=== PATIENT | male | born 1990 | race Caucasian/White ===

== ENCOUNTER 2019-05-04 11:41 | Emergency (ER) | payer OTHER ==
[~2019-05-04] VITALS: Ht 177.8 cm; Wt 77.1 kg
[2019-05-04 13:14] LABS: ABSOLUTE BASOPHILS 0.1 thou/uL (0.0-0.2); ABSOLUTE EOSINOPHILS 0.1 thou/uL (0.0-0.7); ABSOLUTE LYMPHOCYTES 1.4 thou/uL (0.8-5.3); ABSOLUTE MONOCYTES 0.5 thou/uL (0.0-1.2); ABSOLUTE NEUTROPHILS 4.3 thou/uL (1.6-8.1); EOSINOPHILS 0.9 %; HEMATOCRIT 43.2 % (42.0-52.0); LYMPHOCYTES 22.2 %; MCH 30.2 pg (26.0-34.0); MCHC 34.6 g/dL (28.0-37.0); MCV 87.4 fL (80.0-100.0); MONOCYTES 8.4 %; MPV 9.1 fl. (7.2-11.1); NUCLEATED RBCS 0 /100WBC; PLATELET COUNT* 282 thou/uL (150-400); POLYS 67.5 %; RBC 4.95 mil/uL (4.50-6.00); RDW-CV 13.3 % (10.5-14.5); WBC 6.3 thou/uL (4.0-11.0)
[2019-05-04 13:22] LABS: CALCIUM 8.4 mg/dL (8.5-10.1); CREATININE 0.9 mg/dL (0.6-1.3); POTASSIUM 4.1 mmol/L (3.5-5.1)
[2019-05-04] MEDS ORDERED: TORADOL 10 MG T10 MG PO (15:20)
[2019-05-04] MEDS ORDERED: CYCLOBENZAPRINE5 MG PO (15:20)
[2019-05-04 15:30] VITALS: BP 109/73
== END 2019-05-04 15:31 | disposition home or self-care (01) ==
LOC: M.ERS 11:41
PROVIDERS: Personal Emergency Response Attendant
DX: S00.93XA Contusion of unspecified part of head, initial encounter (principal); M54.2 Cervicalgia; F32.9 Major depressive disorder, single episode, unspecified; Z88.1 Allergy status to other antibiotic agents; W22.8XXA Striking against or struck by other objects, initial encounter; Y93.89 Activity, other specified; Y92.89 Other specified places as the place of occurrence of the external cause; Y99.8 Other external cause status